=== PATIENT | female | born 1950 | race Two or more races ===

== ENCOUNTER 2020-08-30 15:00 | Emergency (ER) | payer MEDICARE, MEDICAID ==
[~2020-08-30] VITALS: Ht 162.6 cm; Wt 81.6 kg
[2020-08-30] MEDS ORDERED: ACETAMINOPHEN ES 500 MG TABLET PO ONE (15:30)
[2020-08-30] MEDS ORDERED: ACETAMINOPHEN ES 500 MG TABLET ONE (15:40)
--- NOTE | 2020-08-30 15:44 | NUR ---
PT IS IN ROOM #2A. DR GAR EVALUATED THE PT.
[2020-08-30] MEDS ORDERED: IBUP-1957 PO (16:49)
[2020-08-30] MEDS ORDERED: OXYC-117 PO (16:50)
--- NOTE | 2020-08-30 16:59 | NUR ---
PT WAS D/C'd TO HOME. D/C INSTRUCTIONS GIVEN TO THE PT BY DR GAR.
[2020-08-30 17:00] VITALS: BP 145/72
== END 2020-08-30 17:01 | disposition home or self-care (01) ==
LOC: ER 15:04
DX: S16.1XXA Strain of muscle, fascia and tendon at neck level, initial encounter (principal); S09.90XA Unspecified injury of head, initial encounter; V49.49XA Driver injured in collision with other motor vehicles in traffic accident, initial encounter; Y92.410 Unspecified street and highway as the place of occurrence of the external cause; S53.401A Unspecified sprain of right elbow, initial encounter; S63.501A Unspecified sprain of right wrist, initial encounter; S63.612A Unspecified sprain of right middle finger, initial encounter; E78.00 Pure hypercholesterolemia, unspecified; I10 Essential (primary) hypertension
CPT/HCPCS: 70450; 71045; 72125; 73030; 73080; 73110; 73130; A4663; A9150